=== PATIENT | male | born 2000 | race Caucasian/White ===

== ENCOUNTER 2023-08-27 20:11 | Inpatient (IN) | payer OTHER ==
[~2023-08-27 20:11] MED LIST: Iopamidol-370 76% 500 ML MDV (1 ML CHARGE) ONE
[2023-08-27] MEDS ORDERED: Boostrix 0.5 ML (Tdap) VIAL (>/=7 yrs of age) ONE (20:15)
[2023-08-27] MEDS ORDERED: Tranexamic Acid 1,000 MG/10 ML VIAL ONE (20:15)
[2023-08-27] MEDS ORDERED: Sodium Chloride 0.9% 100 ML ONE (20:16)
[2023-08-27] MEDS ORDERED: CEFAZOLIN 2 GM VIAL ONE (20:16)
[2023-08-27] MEDS ORDERED: fentaNYL 50 mcg/mL 1 mL Vial ONE ×2 (20:19→21:05)
[2023-08-27 20:37] LABS: #Basophils 0.1 thou/uL (0.0-0.2); #Eosinphils 0.1 thou/uL (0.0-0.7); #Monocytes 0.9 thou/uL (0.11-0.59); %Basophils 0.5 % (0.0-1.0); %Eosinophils 0.7 % (0.0-10.0); %Lymphocytes 22.3 % (21.0-51.0); %Monocytes 7.1 % (0.0-10.0); %Neutrophils 68.9 % (42.0-75.0); Hematocrit 43.3 % (42.0-52.0); Hemoglobin 14.8 g/dL (14.0-18.0); Mean Corpuscular HGB CONC 34.2 g/dL (32.0-36.0); Mean Corpuscular Hemoglobin 29.9 pg (27.0-31.0); Mean Corpuscular Volume 87.5 fl (78.0-98.0); Mean Platelet Volume 10.3 fL (7.4-10.4); Platelet Count 257 10x3/uL (130-400); Red Blood Cell (RBC) Count 4.95 mill/uL (4.70-6.10)
[2023-08-27 21:01] LABS: ALT (SGPT) 26 U/L (8-55); AST (SGOT) 39 U/L (5-34); Alkaline Phosphatase 43 U/L (40-110); Anion Gap 15 mmol/L (10-20); BUN (Urea Nitrogen) 21 mg/dL (8.9-20.6); Calc. Creatinine Clearance 0 mL/min (70-130); Carbon Dioxide 20 mmol/L (22-29); Chloride 108 mmol/L (98-107); Estimated GFR 98; Globulin 2.3 g/dL (2.4-3.5); Glucose 108 mg/dL (70-105); Potassium 3.6 mmol/L (3.5-5.1); Protein, Total 6.3 g/dL (6.0-8.3); Sodium 139 mmol/L (136-145)
[2023-08-27] MEDS ORDERED: Ipratropium/Albuterol 3 ML NEB NEB PRN (21:02)
[2023-08-27] MEDS ORDERED: Morphine 4 MG/ML VIAL SLOW IVP PRN (21:02)
[2023-08-27] MEDS ORDERED: Ondansetron PF 4 MG/2 ML Vial IVP PRN (21:02)
[2023-08-27] MEDS ORDERED: Morphine 2 MG/ML VIAL SLOW IVP PRN (21:02)
[2023-08-27] MEDS ORDERED: PROPOFOL 20 ML ONE (21:29)
[2023-08-27] MEDS ORDERED: Midazolam HCl 2 mg/2 ml Vial ONE (21:30)
[2023-08-27] MEDS ORDERED: Fentanyl 250 MCG/5 ML VIAL ONE (21:30)
[2023-08-27] MEDS ORDERED: Lidocaine 1% PF 5 ML VIAL ONE (21:31)
[2023-08-27] MEDS ORDERED: Ondansetron PF 4 MG/2 ML Vial ONE (21:31)
[2023-08-27] MEDS ORDERED: Rocuronium Bromide 10 MG/ML (10ML VIAL) ONE (21:31)
[2023-08-27] MEDS ORDERED: SUCCINYLCHOLINE/SOD CL,ISO/PF 200 MG/10 ML SYRINGE FS ONE (21:32)
[2023-08-27 21:36] LABS: INR-International Normal Ratio 1.1; PTT 29.4 sec (22.9-36.1); Prothrombin Time 14.8 sec (12.0-14.7)
[2023-08-27] MEDS ORDERED: MINERAL OIL/WHITE PETROLATUM 3.5 GM TUBE ONE (22:20)
[2023-08-27] MEDS ORDERED: SUGAMMADEX SODIUM 200 MG/2 ML VIAL ONE (22:31)
[2023-08-27] MEDS ORDERED: Dexamethasone 4 mg/ml Vial ONE (22:31)
[2023-08-27] MEDS ORDERED: PHENYLEPHRINE-NS 100 MCG/ML 10 ML SYRINGE ONE (23:14)
[2023-08-27] MEDS ORDERED: Bacitracin Zinc Ointment 30 gm TUBE ONE (23:47)
[2023-08-28] MEDS ORDERED: Naloxone HCl 0.4 mg/ml Vial IV PRN (00:04)
[2023-08-28] MEDS ORDERED: Promethazine HCl 25 MG/ML VIAL IM PRN ×2 (00:04→00:07)
[2023-08-28] MEDS ORDERED: diphenhydrAMINE 50 MG/ML VIAL IM PRN (00:04)
[2023-08-28] MEDS ORDERED: diphenhydrAMINE 25 MG CAP PO PRN (00:04)
[2023-08-28] MEDS ORDERED: FENTANYL 500 MCG/10 ML VIAL 2,000 MCG in Sodium Chloride 0.9% 60 ML IV PRN ×2 (00:04→08:12)
[2023-08-28] MEDS ORDERED: Ondansetron PF 4 MG/2 ML Vial IVP PRN (00:04)
[2023-08-28] MEDS ORDERED: Ondansetron HCl/PF 4 MG/2 ML Vial IVP PRN (00:07)
[2023-08-28] MEDS ORDERED: Meperidine HCl/PF 25 MG/ML VIAL SLOW IVP PRN (00:07)
[2023-08-28] MEDS ORDERED: Ketorolac Tromethamine 30 MG/ML VIAL IVP PRN (00:07)
[2023-08-28] MEDS ORDERED: fentaNYL 50 mcg/mL 1 mL Vial ONE (00:10)
[2023-08-28] MEDS ORDERED: Communication Order-Pharmacy FS SCH (00:15)
[2023-08-28] MEDS: Acetaminophen 500 MG TAB PO SCH (01:47)
[2023-08-28] MEDS ORDERED: Fentanyl CADD 100 ML IVPB SCH (08:15)
[2023-08-28 08:17] LABS: Anion Gap 12 mmol/L (10-20); BUN (Urea Nitrogen) 16 mg/dL (8.9-20.6); Calc. Creatinine Clearance 179 mL/min (70-130); Calcium 7.2 mg/dL (7.8-10.44); Carbon Dioxide 20 mmol/L (22-29); Chloride 109 mmol/L (98-107); Estimated GFR 125; Glucose 162 mg/dL (70-105); Potassium 4.6 mmol/L (3.5-5.1); Sodium 136 mmol/L (136-145)
[2023-08-28] MEDS: Lactated Ringer's 1,000 ML IV SCH (08:58)
[2023-08-28] MEDS: Bacitracin 1 PK TOP SCH (09:07)
[2023-08-28 10:08] LABS: Hemoglobin 13.5 g/dL (14.0-18.0); Manual Diff?? YES; Mean Corpuscular HGB CONC 33.8 g/dL (32.0-36.0); Mean Corpuscular Hemoglobin 29.6 pg (27.0-31.0); Mean Corpuscular Volume 87.7 fl (78.0-98.0); Mean Platelet Volume 10.2 fL (7.4-10.4); Red Blood Cell (RBC) Count 4.56 mill/uL (4.70-6.10); White Blood Cell (WBC) Count 6.2 10x3/uL (4.8-10.8)
[2023-08-28 10:09] LABS: Delete Auto Diff?? YES; Platelet Count 154 10x3/uL (130-400)
[2023-08-28 10:19] LABS: Hematocrit 38.1 % (42.0-52.0); Hemoglobin 13.2 g/dL (14.0-18.0); Mean Corpuscular Volume 86.6 fl (78.0-98.0); White Blood Cell (WBC) Count 6.9 10x3/uL (4.8-10.8)
[2023-08-28 10:20] LABS: Manual Diff?? YES; Mean Corpuscular HGB CONC 34.6 g/dL (32.0-36.0); Mean Platelet Volume 10.7 fL (7.4-10.4); Platelet Count 162 10x3/uL (130-400)
[2023-08-28 10:34] LABS: Delete Auto Diff?? YES
[2023-08-28 11:14] LABS: Band 25 % (5-11); CellaVision Operator ID LAB.NR; Lymphocytes 11 % (21-51); Monocytes 9 % (0-10); Neutrophil 55 % (42-75); Platelet Adequacy Comment Platelets Normal; Polychromasia SLIGHT = 2-3 cells HPF (0-2); Smudge Cells 10.9 %; Total Cell Count 101
[2023-08-28 13:29] LABS: Band 50 % (5-11); Burr Cells SLIGHT = 2-5 cells HPF (0-1); CellaVision Operator ID LAB.MJL; Large Platelets 1.9 % (0-5); Lymphocytes 9 % (21-51); Metamyelocyte 6 % (0-0); Monocytes 6 % (0-10); Neutrophil 30 % (42-75); Platelet Adequacy Comment Platelets Normal; Poikilocytosis SLIGHT = 6-15 cells HPF (0-5); Polychromasia SLIGHT = 2-3 cells HPF (0-2); Total Cell Count 103
[2023-08-28] MEDS: Fentanyl CADD 100 ML IVPB SCH (14:00)
[2023-08-29] MEDS: Phenol 177 ML BOT PO PRN (03:23)
[2023-08-29 06:42] LABS: Hematocrit 32.5 % (42.0-52.0); Hemoglobin 11.2 g/dL (14.0-18.0); Manual Diff?? YES; Mean Corpuscular HGB CONC 34.5 g/dL (32.0-36.0); Mean Corpuscular Hemoglobin 29.6 pg (27.0-31.0); Mean Platelet Volume 10.3 fL (7.4-10.4); Platelet Count 129 10x3/uL (130-400); Red Blood Cell (RBC) Count 3.78 mill/uL (4.70-6.10); White Blood Cell (WBC) Count 6.1 10x3/uL (4.8-10.8)
[2023-08-29 06:49] LABS: Delete Auto Diff?? YES
[2023-08-29 07:01] LABS: Anion Gap 7 mmol/L (10-20); BUN (Urea Nitrogen) 11 mg/dL (8.9-20.6); Calc. Creatinine Clearance 202 mL/min (70-130); Calcium 7.8 mg/dL (7.8-10.44); Carbon Dioxide 24 mmol/L (22-29); Chloride 105 mmol/L (98-107); Estimated GFR 130; Glucose 102 mg/dL (70-105); Magnesium 1.6 mg/dL (1.6-2.6); Potassium 4.2 mmol/L (3.5-5.1); Sodium 132 mmol/L (136-145)
[2023-08-29 07:07] LABS: Critical Call Chemistry NUR.MH13@0707; Phosphorus 1.3 mg/dL (2.3-4.7)
[2023-08-29 07:24] LABS: Band 12 % (5-11); Burr Cells SLIGHT = 2-5 cells HPF (0-1); CellaVision Operator ID LAB.NR; Large Platelets 2.9 % (0-5); Lymphocytes 11 % (21-51); Microcytosis SLIGHT = 6-15 cells HPF (0-5); Monocytes 5 % (0-10); Neutrophil 73 % (42-75); Platelet Adequacy Comment Platelets Decreased; Polychromasia SLIGHT = 2-3 cells HPF (0-2); Smudge Cells 4.9 %; Total Cell Count 102
[2023-08-29] MEDS: Potassium Phosphate 30 MMOL in Sodium Chloride 0.9% 250 ML 250 ML IVPB SCH (11:45)
[2023-08-29] MEDS: Magnesium Sulfate In Water 4 GM in Premix 1 BAG IVPB SCH (11:45)
[2023-08-29] MEDS: Magnesium 2 GM/50 ML(in water) 4 GM in Premix 1 BAG IVPB SCH (12:02)
[2023-08-29] MEDS: Lactated Ringer's 1,000 ML IV SCH (14:05)
[2023-08-30 06:46] LABS: Hematocrit 31.1 % (42.0-52.0); Hemoglobin 10.6 g/dL (14.0-18.0); Manual Diff?? YES; Mean Corpuscular HGB CONC 34.1 g/dL (32.0-36.0); Mean Corpuscular Hemoglobin 29.9 pg (27.0-31.0); Mean Corpuscular Volume 87.9 fl (78.0-98.0); Mean Platelet Volume 10.9 fL (7.4-10.4); Platelet Count 162 10x3/uL (130-400); RBC Distribution Width 12.8 % (11.5-14.5); Red Blood Cell (RBC) Count 3.54 mill/uL (4.70-6.10); White Blood Cell (WBC) Count 5.8 10x3/uL (4.8-10.8)
[2023-08-30 06:53] LABS: Delete Auto Diff?? YES
[2023-08-30 07:23] LABS: Anion Gap 10 mmol/L (10-20); BUN (Urea Nitrogen) 10 mg/dL (8.9-20.6); Calc. Creatinine Clearance 212 mL/min (70-130); Calcium 8.1 mg/dL (7.8-10.44); Carbon Dioxide 25 mmol/L (22-29); Chloride 101 mmol/L (98-107); Estimated GFR 131; Glucose 91 mg/dL (70-105); Magnesium 1.9 mg/dL (1.6-2.6); Phosphorus 2.5 mg/dL (2.3-4.7); Potassium 4.1 mmol/L (3.5-5.1); Sodium 132 mmol/L (136-145)
[2023-08-30 07:25] LABS: Band 26 % (5-11); CellaVision Operator ID LAB.GE; Lymphocytes 7 % (21-51); Monocytes 8 % (0-10); Neutrophil 56 % (42-75); Platelet Adequacy Comment Platelets Normal; Polychromasia SLIGHT = 2-3 cells HPF (0-2); Reactive Lymphocytes 3 % (0-10); Total Cell Count 100
[2023-08-30] MEDS: Famotidine/PF 20 mg/2ml Vial SLOW IVP SCH (09:14)
[2023-08-30] MEDS: Piperacillin/Tazobactam 3.375 GM in Sodium Chloride 0.9% 100 ML IVPB SCH ×2 (09:15→12:01)
[2023-08-30] MEDS: Enoxaparin 40 MG (0.4 mL) SYRINGE SC SCH (20:16)
[2023-08-31] MEDS: Benzocaine/Menthol 1 LOZ LOZ PO PRN (05:14)
[2023-08-31] MEDS ORDERED: Docusate 100 MG CAP PO PRN (17:12)
[2023-09-01] MEDS: diphenhydrAMINE 50 MG/ML VIAL IVP PRN (01:16)
[2023-09-01 05:29] LABS: Hematocrit 29.2 % (42.0-52.0); Manual Diff?? YES; Mean Corpuscular HGB CONC 34.2 g/dL (32.0-36.0); Mean Corpuscular Volume 87.7 fl (78.0-98.0); Mean Platelet Volume 9.9 fL (7.4-10.4); Platelet Count 219 10x3/uL (130-400); RBC Distribution Width 12.7 % (11.5-14.5); Red Blood Cell (RBC) Count 3.33 mill/uL (4.70-6.10); White Blood Cell (WBC) Count 4.9 10x3/uL (4.8-10.8)
[2023-09-01 05:30] LABS: Delete Auto Diff?? YES
[2023-09-01 06:09] LABS: Band 43 % (5-11); CellaVision Operator ID LAB.CLH1; Hypochromia SLIGHT = 6-15 cells HPF (0-5); Large Platelets 13.7 % (0-5); Lymphocytes 13 % (21-51); Monocytes 13 % (0-10); Neutrophil 27 % (42-75); Platelet Adequacy Comment Platelets Normal; Polychromasia SLIGHT = 2-3 cells HPF (0-2); Reactive Lymphocytes 4 % (0-10); Total Cell Count 102
[2023-09-01 07:18] LABS: Anion Gap 11 mmol/L (10-20); BUN (Urea Nitrogen) 14 mg/dL (8.9-20.6); Calc. Creatinine Clearance 228 mL/min (70-130); Calcium 7.9 mg/dL (7.8-10.44); Carbon Dioxide 26 mmol/L (22-29); Chloride 100 mmol/L (98-107); Estimated GFR 133; Glucose 102 mg/dL (70-105); Magnesium 1.8 mg/dL (1.6-2.6); Potassium 3.7 mmol/L (3.5-5.1); Sodium 133 mmol/L (136-145)
[2023-09-01] MEDS: Furosemide 20 MG (2 mL) VIAL SLOW IVP SCH (09:35)
[2023-09-01 12:25] VITALS: BMI 30.5
[2023-09-01] MEDS: Lactated Ringer's 1,000 ML IV SCH (15:26)
[2023-09-02 05:58] LABS: Hematocrit 28.5 % (42.0-52.0); Hemoglobin 9.8 g/dL (14.0-18.0); Manual Diff?? YES; Mean Corpuscular HGB CONC 34.4 g/dL (32.0-36.0); Mean Corpuscular Hemoglobin 30.1 pg (27.0-31.0); Mean Corpuscular Volume 87.4 fl (78.0-98.0); Mean Platelet Volume 9.6 fL (7.4-10.4); Platelet Count 242 10x3/uL (130-400); RBC Distribution Width 12.6 % (11.5-14.5); Red Blood Cell (RBC) Count 3.26 mill/uL (4.70-6.10); White Blood Cell (WBC) Count 5.1 10x3/uL (4.8-10.8)
[2023-09-02 06:05] LABS: Delete Auto Diff?? YES
[2023-09-02 06:22] LABS: Anion Gap 12 mmol/L (10-20); BUN (Urea Nitrogen) 13 mg/dL (8.9-20.6); Calc. Creatinine Clearance 224 mL/min (70-130); Calcium 7.8 mg/dL (7.8-10.44); Carbon Dioxide 25 mmol/L (22-29); Chloride 99 mmol/L (98-107); Estimated GFR 133; Glucose 89 mg/dL (70-105); Potassium 3.5 mmol/L (3.5-5.1); Sodium 132 mmol/L (136-145)
[2023-09-02 06:30] LABS: Band 28 % (5-11); CellaVision Operator ID LAB.CLH1; Eosinophils 5 % (0-10); Hypochromia SLIGHT = 6-15 cells HPF (0-5); Lymphocytes 20 % (21-51); Monocytes 13 % (0-10); Myelocyte 1 % (0-0); Neutrophil 33 % (42-75); Nucleated RBC (Manual Ct) 1 % (0); Platelet Adequacy Comment Platelets Normal; Polychromasia SLIGHT = 2-3 cells HPF (0-2); Promyelocytes 1 % (0-0); Total Cell Count 101
[2023-09-02] MEDS ORDERED: GASTROGRAFIN 30 ML BOT ONE (11:56)
[2023-09-02] MEDS ORDERED: Iopamidol-370 76% 500 ML MDV (1 ML CHARGE) ONE (11:56)
[2023-09-02] MEDS: Sodium Chloride 0.9% 1,000 ML IV SCH (12:43)
[2023-09-02] MEDS ORDERED: Rocuronium Bromide 10 MG/ML (10ML VIAL) ONE (15:32)
[2023-09-02] MEDS ORDERED: Ondansetron PF 4 MG/2 ML Vial ONE ×2 (15:32→15:42)
[2023-09-02] MEDS ORDERED: PROPOFOL 40 ML ONE (15:32)
[2023-09-02] MEDS ORDERED: SUGAMMADEX SODIUM 200 MG/2 ML VIAL ONE ×2 (15:32→17:40)
[2023-09-02] MEDS ORDERED: Lidocaine 1% PF 5 ML VIAL ONE (15:32)
[2023-09-02] MEDS ORDERED: Dexamethasone 4 mg/ml Vial ONE (15:32)
[2023-09-02] MEDS ORDERED: Fentanyl 250 MCG/5 ML VIAL ONE (15:33)
[2023-09-02] MEDS ORDERED: fentaNYL 50 mcg/mL 1 mL Vial ONE ×3 (15:43→18:38)
[2023-09-02] MEDS ORDERED: Famotidine/PF 20 mg/2ml Vial ONE (15:43)
[2023-09-02] MEDS ORDERED: Ondansetron HCl/PF 4 MG/2 ML Vial IVP PRN (15:58)
[2023-09-02] MEDS ORDERED: Promethazine HCl 25 MG/ML VIAL IM PRN ×4 (15:58→22:23)
[2023-09-02] MEDS ORDERED: Meperidine HCl/PF 25 MG/ML VIAL SLOW IVP PRN (15:58)
[2023-09-02] MEDS ORDERED: Midazolam HCl 2 mg/2 ml Vial ONE (16:16)
[2023-09-02] MEDS ORDERED: Ketamine In 0.9 % NaCl 50 MG/5 ML SYRINGE ONE (16:50)
[2023-09-02] MEDS ORDERED: diphenhydrAMINE 25 MG CAP PO PRN ×3 (17:48→22:23)
[2023-09-02] MEDS ORDERED: diphenhydrAMINE 50 MG/ML VIAL IM PRN ×3 (17:48→22:23)
[2023-09-02] MEDS ORDERED: Ondansetron PF 4 MG/2 ML Vial IVP PRN ×3 (17:48→22:23)
[2023-09-02] MEDS ORDERED: Naloxone HCl 0.4 mg/ml Vial IV PRN ×3 (17:48→22:23)
[2023-09-02] MEDS ORDERED: diphenhydrAMINE 50 MG/ML VIAL IVP PRN ×3 (17:48→22:23)
[2023-09-02] MEDS ORDERED: Communication Order-Pharmacy FS SCH ×3 (18:00→22:30)
[2023-09-02] MEDS ORDERED: HYDROmorphone 0.5 MG/0.5 ML SYRINGE ONE ×2 (18:49→18:58)
[2023-09-02] MEDS: FENTANYL 500 MCG/10 ML VIAL 2,000 MCG in Sodium Chloride 0.9% 60 ML IV PRN (19:58)
[2023-09-02] MEDS ORDERED: HYDROmorphone/PF 10 MG in Sodium Chloride 0.9% 99 ML IV PRN ×2 (22:21→22:23)
[2023-09-02] MEDS: HYDROmorphone/PF 10 MG in Sodium Chloride 0.9% 99 ML IV PRN (23:45)
[2023-09-03] MEDS: Ketorolac Tromethamine 30 MG (1 mL) VIAL IVP SCH ×2 (03:25→12:19)
[2023-09-04 10:22] LABS: Hemoglobin 9.8 g/dL (14.0-18.0); Manual Diff?? YES; Mean Corpuscular HGB CONC 33.8 g/dL (32.0-36.0); Mean Corpuscular Hemoglobin 29.8 pg (27.0-31.0); Mean Corpuscular Volume 88.1 fl (78.0-98.0); Mean Platelet Volume 9.1 fL (7.4-10.4); Platelet Count 325 10x3/uL (130-400); Red Blood Cell (RBC) Count 3.29 mill/uL (4.70-6.10); White Blood Cell (WBC) Count 9.9 10x3/uL (4.8-10.8)
[2023-09-04 10:28] LABS: Delete Auto Diff?? YES
[2023-09-04 10:48] LABS: ALT (SGPT) 21 U/L (8-55); AST (SGOT) 25 U/L (5-34); Albumin 2.5 g/dL (3.5-5.0); Alkaline Phosphatase 34 U/L (40-110); Anion Gap 16 mmol/L (10-20); BUN (Urea Nitrogen) 14 mg/dL (8.9-20.6); Bilirubin, Total 2.1 mg/dL (0.2-1.2); Calc. Creatinine Clearance 207 mL/min (70-130); Calcium 7.6 mg/dL (7.8-10.44); Carbon Dioxide 22 mmol/L (22-29); Chloride 104 mmol/L (98-107); Estimated GFR 130; Globulin 2.2 g/dL (2.4-3.5); Glucose 86 mg/dL (70-105); Potassium 3.8 mmol/L (3.5-5.1); Protein, Total 4.7 g/dL (6.0-8.3); Sodium 138 mmol/L (136-145)
[2023-09-04 11:19] LABS: Band 13 % (5-11); Burr Cells SLIGHT = 2-5 cells HPF (0-1); CellaVision Operator ID LAB.CMB; Eosinophils 1 % (0-10); Large Platelets 4.9 % (0-5); Lymphocytes 7 % (21-51); Monocytes 5 % (0-10); Neutrophil 73 % (42-75); Ovalocytes SLIGHT = 2-5 cells HPF (0-1); Platelet Adequacy Comment Platelets Normal; Polychromasia SLIGHT = 2-3 cells HPF (0-2); Total Cell Count 102
[2023-09-07 03:52] LABS: #Eosinphils 0.1 thou/uL (0.0-0.7); #Neutrophils 6.5 thou/uL (1.40-6.50); %Basophils 0.2 % (0.0-1.0); %Lymphocytes 11.4 % (21.0-51.0); %Monocytes 11.5 % (0.0-10.0); %Neutrophils 74.4 % (42.0-75.0); Mean Corpuscular HGB CONC 33.3 g/dL (32.0-36.0); Mean Corpuscular Hemoglobin 29.8 pg (27.0-31.0); Mean Corpuscular Volume 89.4 fl (78.0-98.0); Mean Platelet Volume 9.4 fL (7.4-10.4); Platelet Count 418 10x3/uL (130-400); RBC Distribution Width 13.1 % (11.5-14.5); Red Blood Cell (RBC) Count 3.02 mill/uL (4.70-6.10); White Blood Cell (WBC) Count 8.7 10x3/uL (4.8-10.8)
[2023-09-07 04:16] LABS: ALT (SGPT) 22 U/L (8-55); AST (SGOT) 24 U/L (5-34); Albumin 2.8 g/dL (3.5-5.0); Alkaline Phosphatase 52 U/L (40-110); Anion Gap 12 mmol/L (10-20); BUN (Urea Nitrogen) 13 mg/dL (8.9-20.6); Bilirubin, Total 2.4 mg/dL (0.2-1.2); Calc. Creatinine Clearance 218 mL/min (70-130); Calcium 7.8 mg/dL (7.8-10.44); Carbon Dioxide 24 mmol/L (22-29); Chloride 103 mmol/L (98-107); Estimated GFR 132; Globulin 2.4 g/dL (2.4-3.5); Glucose 96 mg/dL (70-105); Potassium 3.7 mmol/L (3.5-5.1); Protein, Total 5.2 g/dL (6.0-8.3); Sodium 135 mmol/L (136-145)
[2023-09-07] MEDS: Ketorolac Tromethamine 30 MG (1 mL) VIAL IVP SCH (12:15)
[2023-09-07] MEDS ORDERED: Ondansetron ODT 4 MG TAB PO PRN (15:49)
[2023-09-07] MEDS: Melatonin 3 MG TAB PO PRN (23:35)
[2023-09-08 04:52] LABS: #Eosinphils 0.1 thou/uL (0.0-0.7); #Neutrophils 4.6 thou/uL (1.40-6.50); %Basophils 0.6 % (0.0-1.0); %Eosinophils 1.7 % (0.0-10.0); %Lymphocytes 17.7 % (21.0-51.0); %Neutrophils 64.2 % (42.0-75.0); Hematocrit 29.1 % (42.0-52.0); Hemoglobin 9.7 g/dL (14.0-18.0); Mean Corpuscular HGB CONC 33.3 g/dL (32.0-36.0); Mean Corpuscular Hemoglobin 29.4 pg (27.0-31.0); Mean Corpuscular Volume 88.2 fl (78.0-98.0); Mean Platelet Volume 9.6 fL (7.4-10.4); Platelet Count 468 10x3/uL (130-400); White Blood Cell (WBC) Count 7.2 10x3/uL (4.8-10.8)
[2023-09-08 05:32] LABS: Anion Gap 14 mmol/L (10-20); BUN (Urea Nitrogen) 8 mg/dL (8.9-20.6); Calc. Creatinine Clearance 228 mL/min (70-130); Calcium 8.1 mg/dL (7.8-10.44); Carbon Dioxide 24 mmol/L (22-29); Chloride 105 mmol/L (98-107); Estimated GFR 133; Glucose 102 mg/dL (70-105); Potassium 3.6 mmol/L (3.5-5.1); Sodium 139 mmol/L (136-145)
[2023-09-08] MEDS ORDERED: Lactated Ringer's 1,000 ML IV SCH (10:30)
[2023-09-08] MEDS ORDERED: SUGAMMADEX SODIUM 200 MG/2 ML VIAL ONE (11:33)
[2023-09-08] MEDS ORDERED: Midazolam HCl 2 mg/2 ml Vial ONE (11:33)
[2023-09-08] MEDS ORDERED: Fentanyl 250 MCG/5 ML VIAL ONE (11:33)
[2023-09-08] MEDS ORDERED: PROPOFOL 20 ML ONE (11:33)
[2023-09-08] MEDS ORDERED: Lidocaine 1% PF 5 ML VIAL ONE (11:35)
[2023-09-08] MEDS ORDERED: Dexamethasone 4 mg/ml Vial ONE (11:35)
[2023-09-08] MEDS ORDERED: Ondansetron PF 4 MG/2 ML Vial ONE (11:35)
[2023-09-08] MEDS ORDERED: Rocuronium Bromide 10 MG/ML (10ML VIAL) ONE (11:35)
[2023-09-08] MEDS: Lactated Ringer's 1,000 ML IV SCH (12:25)
[2023-09-08] MEDS ORDERED: CEFAZOLIN 2 GM VIAL ONE (13:09)
[2023-09-08] MEDS ORDERED: Sodium Chloride 0.9% 100 ML ONE (13:09)
[2023-09-08] MEDS ORDERED: HYDROmorphone 2 MG/ML VIAL SLOW IVP PRN (13:41)
[2023-09-08] MEDS ORDERED: Promethazine HCl 25 MG/ML VIAL IM PRN (13:41)
[2023-09-08] MEDS ORDERED: Ondansetron HCl/PF 4 MG/2 ML Vial IVP PRN (13:41)
[2023-09-08] MEDS ORDERED: HYDROmorphone 0.5 MG/0.5 ML SYRINGE ONE ×2 (14:30→14:51)
[2023-09-08] MEDS ORDERED: fentaNYL 50 mcg/mL 1 mL Vial ONE ×4 (15:17→16:13)
[2023-09-08] MEDS: Morphine 4 MG/ML VIAL SLOW IVP PRN (17:29)
[2023-09-09 06:44] LABS: #Eosinphils 0.1 thou/uL (0.0-0.7); #Monocytes 1.2 thou/uL (0.11-0.59); #Neutrophils 5.1 thou/uL (1.40-6.50); %Basophils 0.3 % (0.0-1.0); %Eosinophils 0.6 % (0.0-10.0); %Lymphocytes 17.9 % (21.0-51.0); %Monocytes 15.5 % (0.0-10.0); %Neutrophils 64.4 % (42.0-75.0); Hematocrit 28.4 % (42.0-52.0); Hemoglobin 9.3 g/dL (14.0-18.0); Mean Corpuscular HGB CONC 32.7 g/dL (32.0-36.0); Mean Corpuscular Hemoglobin 29.4 pg (27.0-31.0); Mean Corpuscular Volume 89.9 fl (78.0-98.0); Mean Platelet Volume 9.5 fL (7.4-10.4); Platelet Count 538 10x3/uL (130-400); RBC Distribution Width 13.2 % (11.5-14.5); Red Blood Cell (RBC) Count 3.16 mill/uL (4.70-6.10); White Blood Cell (WBC) Count 7.9 10x3/uL (4.8-10.8)
[2023-09-09 07:23] LABS: Anion Gap 17 mmol/L (10-20); BUN (Urea Nitrogen) 9 mg/dL (8.9-20.6); Calc. Creatinine Clearance 215 mL/min (70-130); Calcium 8.3 mg/dL (7.8-10.44); Carbon Dioxide 23 mmol/L (22-29); Chloride 102 mmol/L (98-107); Estimated GFR 131; Glucose 89 mg/dL (70-105); Potassium 3.7 mmol/L (3.5-5.1); Sodium 138 mmol/L (136-145)
[2023-09-09] MEDS: Lactulose 20 GM (30 mL) UDCUP PO SCH (10:11)
[2023-09-09] MEDS: Ibuprofen 800 MG TAB PO PRN (21:21)
[2023-09-10] MEDS: traMADol HCl 50 MG TAB PO PRN (13:05)
[2023-09-12] MEDS: Lactated Ringer's 1,000 ML IV SCH (00:26)
[2023-09-12 00:53] LABS: Hemoglobin 8.9 g/dL (14.0-18.0); Manual Diff?? YES; Mean Corpuscular Hemoglobin 29.4 pg (27.0-31.0); Mean Corpuscular Volume 89.1 fl (78.0-98.0); Mean Platelet Volume 9.6 fL (7.4-10.4); Platelet Count 466 10x3/uL (130-400); RBC Distribution Width 12.9 % (11.5-14.5); Red Blood Cell (RBC) Count 3.03 mill/uL (4.70-6.10); White Blood Cell (WBC) Count 9.4 10x3/uL (4.8-10.8)
[2023-09-12 00:55] LABS: Delete Auto Diff?? YES
[2023-09-12 01:06] LABS: Anion Gap 14 mmol/L (10-20); BUN (Urea Nitrogen) 10 mg/dL (8.9-20.6); Calc. Creatinine Clearance 204 mL/min (70-130); Calcium 7.9 mg/dL (7.8-10.44); Carbon Dioxide 24 mmol/L (22-29); Chloride 102 mmol/L (98-107); Estimated GFR 129; Glucose 112 mg/dL (70-105); Potassium 3.9 mmol/L (3.5-5.1); Sodium 136 mmol/L (136-145)
[2023-09-12 01:23] LABS: Band 11 % (5-11); Eosinophils 2 % (0-10); Lymphocytes 19 % (21-51); Monocytes 10 % (0-10); Neutrophil 56 % (42-75); Reactive Lymphocytes 1 % (0-10)
[2023-09-12 01:25] LABS: Ovalocytes SLIGHT = 2-5 cells (100X) (0-1/hpf); Polychromasia SLIGHT = 2-3 cells (100X) (0-2/hpf); Stomatocytes SLIGHT = 2-5 cells (100X) (0-1/hpf)
[2023-09-12 01:26] LABS: Platelet Adequacy Comment Appears Increased
[2023-09-12] MEDS ORDERED: PROPOFOL 20 ML ONE (18:24)
[2023-09-12] MEDS ORDERED: Midazolam HCl 2 mg/2 ml Vial ONE (18:24)
[2023-09-12] MEDS ORDERED: fentaNYL PF 100 MCG/2 ML SYRINGE ONE ×2 (18:24→20:22)
[2023-09-12] MEDS ORDERED: SUCCINYLCHOLINE/SOD CL,ISO/PF 200 MG/10 ML SYRINGE FS ONE (18:25)
[2023-09-12] MEDS ORDERED: Ondansetron PF 4 MG/2 ML Vial ONE (18:25)
[2023-09-12] MEDS ORDERED: Lidocaine 1% PF 5 ML VIAL ONE (18:25)
[2023-09-12] MEDS ORDERED: Rocuronium Bromide 10 MG/ML (10ML VIAL) ONE (18:25)
[2023-09-12] MEDS ORDERED: Dexamethasone 4 mg/ml Vial ONE (18:25)
[2023-09-12] MEDS ORDERED: Piperacillin/Tazobactam 3.375 GM VIAL ONE (18:42)
[2023-09-12] MEDS ORDERED: PHENYLEPHRINE-NS 100 MCG/ML 10 ML SYRINGE ONE (18:57)
[2023-09-12] MEDS ORDERED: Promethazine HCl 25 MG/ML VIAL IM PRN (19:56)
[2023-09-12] MEDS ORDERED: diphenhydrAMINE 25 MG CAP PO PRN (19:56)
[2023-09-12] MEDS ORDERED: diphenhydrAMINE 50 MG/ML VIAL IM PRN (19:56)
[2023-09-12] MEDS ORDERED: Naloxone HCl 0.4 mg/ml Vial IV PRN (19:56)
[2023-09-12] MEDS ORDERED: diphenhydrAMINE 50 MG/ML VIAL IVP PRN (19:56)
[2023-09-12] MEDS ORDERED: SUGAMMADEX SODIUM 200 MG/2 ML VIAL ONE (20:00)
[2023-09-12] MEDS ORDERED: Communication Order-Pharmacy FS SCH (20:00)
[2023-09-12] MEDS ORDERED: Ketorolac Tromethamine 30 MG (1 mL) VIAL ONE (20:21)
[2023-09-12] MEDS ORDERED: fentaNYL 50 mcg/mL 1 mL Vial ONE (20:47)
[2023-09-13] MEDS: Lactated Ringer's 1,000 ML IV SCH (04:30)
[2023-09-13 04:40] LABS: Hemoglobin 8.7 g/dL (14.0-18.0); Manual Diff?? YES; Mean Corpuscular HGB CONC 32.2 g/dL (32.0-36.0); Mean Corpuscular Hemoglobin 28.8 pg (27.0-31.0); Mean Corpuscular Volume 89.4 fl (78.0-98.0); Mean Platelet Volume 9.8 fL (7.4-10.4); Platelet Count 464 10x3/uL (130-400); RBC Distribution Width 13.1 % (11.5-14.5); Red Blood Cell (RBC) Count 3.02 mill/uL (4.70-6.10); White Blood Cell (WBC) Count 9.5 10x3/uL (4.8-10.8)
[2023-09-13 04:48] LABS: Delete Auto Diff?? YES
[2023-09-13 05:01] LABS: ALT (SGPT) 24 U/L (8-55); AST (SGOT) 19 U/L (5-34); Albumin 2.5 g/dL (3.5-5.0); Alkaline Phosphatase 65 U/L (40-110); BUN (Urea Nitrogen) 6 mg/dL (8.9-20.6); Bilirubin, Total 0.6 mg/dL (0.2-1.2); Calc. Creatinine Clearance 257 mL/min (70-130); Calcium 8.2 mg/dL (7.8-10.44); Carbon Dioxide 26 mmol/L (22-29); Estimated GFR 138; Globulin 2.5 g/dL (2.4-3.5); Glucose 141 mg/dL (70-105); Sodium 139 mmol/L (136-145)
[2023-09-13 05:05] LABS: Chloride 105 mmol/L (98-107); Potassium 4.6 mmol/L (3.5-5.1)
[2023-09-13 05:08] LABS: Anion Gap 12 mmol/L (10-20)
[2023-09-13 05:12] LABS: Band 48 % (5-11); CellaVision Operator ID LAB.CLH1; Hypochromia SLIGHT = 6-15 cells HPF (0-5); Lymphocytes 3 % (21-51); Metamyelocyte 1 % (0-0); Monocytes 8 % (0-10); Neutrophil 38 % (42-75); Platelet Adequacy Comment Platelets Increased; Polychromasia SLIGHT = 2-3 cells HPF (0-2); Reactive Lymphocytes 1 % (0-10); Total Cell Count 102
[2023-09-13] MEDS: Piperacillin/Tazobactam 3.375 GM in Sodium Chloride 0.9% 100 ML IVPB SCH ×2 (09:04→13:22)
[2023-09-13] MEDS ORDERED: Sodium Bicarbonate 0.5 MEQ/ML SDV 10 ML ONE (13:57)
[2023-09-13] MEDS ORDERED: Lidocaine 1% PF 5 ML VIAL ONE (13:57)
[2023-09-13] MEDS: HYDROmorphone/PF 10 MG in Sodium Chloride 0.9% 99 ML IV PRN (23:22)
[2023-09-14] MEDS ORDERED: LYTES IN TPN IVPB PRN (09:58)
[2023-09-14] MEDS: Pantoprazole 40 MG VIAL IVP SCH (10:02)
[2023-09-14 12:03] LABS: Magnesium 1.7 mg/dL (1.6-2.6); Phosphorus 4.4 mg/dL (2.3-4.7)
[2023-09-14] MEDS: Multivitamins, Adult 10 ML, TRACE ELEMENT CONCENTRATE 1 ML in D15W-AA 5% with Lytes 2,0... IV SCH (15:29)
[2023-09-15 08:15] LABS: Hematocrit 26.7 % (42.0-52.0); Hemoglobin 8.6 g/dL (14.0-18.0); Manual Diff?? YES; Mean Corpuscular HGB CONC 32.2 g/dL (32.0-36.0); Mean Corpuscular Hemoglobin 28.9 pg (27.0-31.0); Mean Corpuscular Volume 89.6 fl (78.0-98.0); Mean Platelet Volume 8.9 fL (7.4-10.4); Platelet Count 399 10x3/uL (130-400); RBC Distribution Width 12.8 % (11.5-14.5); Red Blood Cell (RBC) Count 2.98 mill/uL (4.70-6.10); White Blood Cell (WBC) Count 5.6 10x3/uL (4.8-10.8)
[2023-09-15 08:19] LABS: Delete Auto Diff?? YES
[2023-09-15 08:34] LABS: ALT (SGPT) 19 U/L (8-55); AST (SGOT) 15 U/L (5-34); Albumin 2.8 g/dL (3.5-5.0); Alkaline Phosphatase 70 U/L (40-110); Anion Gap 9 mmol/L (10-20); BUN (Urea Nitrogen) 7 mg/dL (8.9-20.6); Bilirubin, Total 0.5 mg/dL (0.2-1.2); Calc. Creatinine Clearance 224 mL/min (70-130); Calcium 8.3 mg/dL (7.8-10.44); Carbon Dioxide 31 mmol/L (22-29); Chloride 104 mmol/L (98-107); Estimated GFR 133; Globulin 2.8 g/dL (2.4-3.5); Glucose 141 mg/dL (70-105); Magnesium 2.3 mg/dL (1.6-2.6); Phosphorus 4.3 mg/dL (2.3-4.7); Potassium 3.9 mmol/L (3.5-5.1); Protein, Total 5.6 g/dL (6.0-8.3); Sodium 140 mmol/L (136-145)
[2023-09-15 08:41] LABS: Band 16 % (5-11); CellaVision Operator ID LAB.GE; Eosinophils 4 % (0-10); Lymphocytes 31 % (21-51); Metamyelocyte 1 % (0-0); Monocytes 14 % (0-10); Myelocyte 3 % (0-0); Neutrophil 32 % (42-75); Platelet Adequacy Comment Platelets Normal; Polychromasia SLIGHT = 2-3 cells HPF (0-2); Schistocytes SLIGHT = 2-5 cells HPF (0-1); Total Cell Count 101
[2023-09-15] MEDS: Lactated Ringer's 1,000 ML IV SCH (11:15)
[2023-09-15] MEDS: Multivitamins, Adult 10 ML, TRACE ELEMENT CONCENTRATE 1 ML, Fat Emulsion 500 ML in D15W... IV SCH (13:50)
[2023-09-16 05:19] LABS: ALT (SGPT) 18 U/L (8-55); AST (SGOT) 13 U/L (5-34); Alkaline Phosphatase 60 U/L (40-110); Anion Gap 13 mmol/L (10-20); BUN (Urea Nitrogen) 8 mg/dL (8.9-20.6); Bilirubin, Total 0.4 mg/dL (0.2-1.2); Calc. Creatinine Clearance 207 mL/min (70-130); Calcium 8.7 mg/dL (7.8-10.44); Carbon Dioxide 28 mmol/L (22-29); Chloride 104 mmol/L (98-107); Estimated GFR 130; Globulin 3.1 g/dL (2.4-3.5); Glucose 113 mg/dL (70-105); Magnesium 2.2 mg/dL (1.6-2.6); Potassium 4.1 mmol/L (3.5-5.1); Protein, Total 6.1 g/dL (6.0-8.3); Sodium 141 mmol/L (136-145)
[2023-09-16] MEDS ORDERED: Acetaminophen 325 MG TAB PO PRN (09:51)
[2023-09-16] MEDS: Lactated Ringer's 1,000 ML IV SCH ×2 (12:01→12:15)
[2023-09-16] MEDS: Ondansetron PF 4 MG/2 ML Vial IVP PRN (16:17)
[2023-09-16] MEDS: HYDROcodone/Acetaminophen 5/325 mg Tablet PO PRN ×2 (16:17→21:14)
[2023-09-17 05:04] LABS: Hematocrit 28.8 % (42.0-52.0); Hemoglobin 9.2 g/dL (14.0-18.0); Manual Diff?? YES; Mean Corpuscular HGB CONC 31.9 g/dL (32.0-36.0); Mean Corpuscular Volume 90.9 fl (78.0-98.0); Mean Platelet Volume 9.5 fL (7.4-10.4); Platelet Count 413 10x3/uL (130-400); RBC Distribution Width 12.6 % (11.5-14.5); Red Blood Cell (RBC) Count 3.17 mill/uL (4.70-6.10); White Blood Cell (WBC) Count 5.8 10x3/uL (4.8-10.8)
[2023-09-17 05:15] LABS: Delete Auto Diff?? YES
[2023-09-17 05:33] LABS: Anion Gap 12 mmol/L (10-20); BUN (Urea Nitrogen) 8 mg/dL (8.9-20.6); Calc. Creatinine Clearance 209 mL/min (70-130); Calcium 8.9 mg/dL (7.8-10.44); Carbon Dioxide 26 mmol/L (22-29); Chloride 102 mmol/L (98-107); Critical Call Chemistry NUR.SAP1@0532; Estimated GFR 130; Glucose 422 mg/dL (70-105); Magnesium 2.3 mg/dL (1.6-2.6); Phosphorus 5.2 mg/dL (2.3-4.7); Potassium 5.1 mmol/L (3.5-5.1); Sodium 135 mmol/L (136-145)
[2023-09-17 05:56] LABS: Band 9 % (5-11); CellaVision Operator ID lab.abc; Eosinophils 3 % (0-10); Large Platelets 8.9 % (0-5); Lymphocytes 23 % (21-51); Metamyelocyte 2 % (0-0); Monocytes 18 % (0-10); Neutrophil 45 % (42-75); Platelet Adequacy Comment Platelets Increased; Polychromasia SLIGHT = 2-3 cells HPF (0-2); Smudge Cells 13.9 %; Total Cell Count 101
[2023-09-17 10:52] LABS: ALT (SGPT) 25 U/L (8-55); AST (SGOT) 23 U/L (5-34); Albumin 3.4 g/dL (3.5-5.0); Alkaline Phosphatase 68 U/L (40-110); Anion Gap 13 mmol/L (10-20); BUN (Urea Nitrogen) 9 mg/dL (8.9-20.6); Bilirubin, Total 0.8 mg/dL (0.2-1.2); Calc. Creatinine Clearance 218 mL/min (70-130); Carbon Dioxide 26 mmol/L (22-29); Chloride 103 mmol/L (98-107); Estimated GFR 132; Globulin 3.2 g/dL (2.4-3.5); Glucose 101 mg/dL (70-105); Magnesium 2.1 mg/dL (1.6-2.6); Phosphorus 4.2 mg/dL (2.3-4.7); Potassium 4.5 mmol/L (3.5-5.1); Protein, Total 6.6 g/dL (6.0-8.3); Sodium 137 mmol/L (136-145)
[2023-09-17] MEDS: Morphine 2 MG/ML VIAL SLOW IVP PRN (13:30)
[2023-09-18] MEDS ORDERED: Lidocaine 1% w/Epinephrine 1:100K 20 ML VIAL FS SCH (07:45)
[2023-09-18] MEDS ORDERED: Bupivacaine 0.25% HCL 30 ML VIAL FS SCH (07:45)
[2023-09-18 08:48] LABS: ALT (SGPT) 79 U/L (8-55); AST (SGOT) 58 U/L (5-34); Albumin 3.5 g/dL (3.5-5.0); Alkaline Phosphatase 78 U/L (40-110); Anion Gap 12 mmol/L (10-20); BUN (Urea Nitrogen) 10 mg/dL (8.9-20.6); Bilirubin, Total 0.8 mg/dL (0.2-1.2); Calc. Creatinine Clearance 209 mL/min (70-130); Calcium 9.3 mg/dL (7.8-10.44); Carbon Dioxide 28 mmol/L (22-29); Chloride 103 mmol/L (98-107); Estimated GFR 130; Globulin 3.3 g/dL (2.4-3.5); Glucose 107 mg/dL (70-105); Magnesium 2.2 mg/dL (1.6-2.6); Phosphorus 5.2 mg/dL (2.3-4.7); Potassium 4.6 mmol/L (3.5-5.1); Protein, Total 6.8 g/dL (6.0-8.3); Sodium 138 mmol/L (136-145)
[2023-09-18] MEDS: Albumin 25% 25 GM (100 mL) BOT IVPB SCH (12:17)
[2023-09-18] MEDS: Morphine 4 MG/ML VIAL ONE (13:55)
[2023-09-18] MEDS: Morphine 4 MG/ML VIAL SLOW IVP SCH (15:29)
[2023-09-19] MEDS: traMADol HCl 50 MG TAB PO PRN (00:30)
[2023-09-19 05:59] LABS: ALT (SGPT) 61 U/L (8-55); AST (SGOT) 35 U/L (5-34); Albumin 4.3 g/dL (3.5-5.0); Alkaline Phosphatase 63 U/L (40-110); Anion Gap 13 mmol/L (10-20); BUN (Urea Nitrogen) 11 mg/dL (8.9-20.6); Bilirubin, Total 1.3 mg/dL (0.2-1.2); Calc. Creatinine Clearance 224 mL/min (70-130); Calcium 9.7 mg/dL (7.8-10.44); Carbon Dioxide 25 mmol/L (22-29); Chloride 102 mmol/L (98-107); Estimated GFR 133; Globulin 2.8 g/dL (2.4-3.5); Glucose 83 mg/dL (70-105); Magnesium 2.2 mg/dL (1.6-2.6); Phosphorus 5.7 mg/dL (2.3-4.7); Potassium 4.2 mmol/L (3.5-5.1); Protein, Total 7.1 g/dL (6.0-8.3); Sodium 136 mmol/L (136-145)
[2023-09-19] MEDS: SODIUM CHLORIDE IV SCH (15:32)
[2023-09-19] MEDS: [UNRECOGNIZED DRUG - OTHER] IV SCH (15:32)
[2023-09-19] MEDS: POTASSIUM ACETATE IV SCH (15:32)
[2023-09-19] MEDS: SODIUM ACETATE IV SCH (15:32)
[2023-09-19] MEDS: Lactated Ringer's 1,000 ML IV SCH (15:33)
[2023-09-20] MEDS: SODIUM ACETATE IV SCH (13:21)
[2023-09-20] MEDS: [UNRECOGNIZED DRUG - OTHER] IV SCH (13:21)
[2023-09-20] MEDS: POTASSIUM ACETATE IV SCH (13:21)
[2023-09-20] MEDS: SODIUM CHLORIDE IV SCH (13:21)
[2023-09-20] MEDS: Melatonin 3 MG TAB PO PRN (23:34)
[2023-09-21 06:54] LABS: ALT (SGPT) 72 U/L (8-55); AST (SGOT) 35 U/L (5-34); Albumin 4.1 g/dL (3.5-5.0); Alkaline Phosphatase 90 U/L (40-110); Anion Gap 13 mmol/L (10-20); BUN (Urea Nitrogen) 12 mg/dL (8.9-20.6); Bilirubin, Total 0.8 mg/dL (0.2-1.2); Calc. Creatinine Clearance 204 mL/min (70-130); Calcium 9.4 mg/dL (7.8-10.44); Carbon Dioxide 26 mmol/L (22-29); Chloride 104 mmol/L (98-107); Estimated GFR 129; Globulin 2.9 g/dL (2.4-3.5); Glucose 93 mg/dL (70-105); Potassium 4.1 mmol/L (3.5-5.1); Sodium 139 mmol/L (136-145)
[2023-09-21] MEDS ORDERED: traMADol HCl 50 MG TAB PO PRN (08:18)
[2023-09-21] MEDS: Morphine 4 MG/ML VIAL SLOW IVP SCH (08:30)
[2023-09-21] MEDS ORDERED: Acetaminophen 325 MG TAB PO SCH (12:15)
[2023-09-21] MEDS: traMADol HCl 50 MG TAB PO SCH (12:30)
[2023-09-21] MEDS: Acetaminophen 500 MG TAB PO SCH ×2 (12:31→18:00)
[2023-09-21] MEDS: Ibuprofen 600 MG TAB PO PRN (15:22)
[2023-09-21] MEDS: Ibuprofen 600 MG TAB PO SCH (15:30)
[2023-09-22] MEDS: diphenhydrAMINE 25 MG CAP PO PRN (01:40)
[2023-09-22] MEDS ORDERED: Polyethylene Glycol 3350 17 GM Packet PO PRN (10:00)
[2023-09-22] MEDS: Magnesium Citrate 300 ML BOT PO SCH (10:26)
[2023-09-22] MEDS: Morphine 4 MG/ML VIAL ONE (14:48)
[2023-09-22] MEDS ORDERED: Lactulose 20 GM (30 mL) UDCUP PO SCH (15:00)
[2023-09-22] MEDS ORDERED: Senokot S 8.6-50 MG TAB PO SCH ×2 (21:00)
[2023-09-23] MEDS: traMADol HCl 50 MG TAB PO PRN (08:52)
[2023-09-23] MEDS ORDERED: Polyethylene Glycol 3350 17 GM Packet PO SCH (09:00)
[2023-09-23] MEDS: Morphine 4 MG/ML VIAL ONE (09:22)
[2023-09-23] MEDS: Morphine 2 MG/ML VIAL SLOW IVP SCH (09:24)
[2023-09-23] MEDS: Diphenoxylate HCl/Atropine Tablet PO SCH (14:56)
[2023-09-23] MEDS: Metamucil PACK PO SCH (21:45)
[2023-09-24] MEDS ORDERED: Metamucil PACK PO SCH (09:00)
[2023-09-24] MEDS ORDERED: Diphenoxylate HCl/Atropine Tablet PO PRN ×2 (09:00→09:17)
[2023-09-24] MEDS: Morphine 4 MG/ML VIAL SLOW IVP SCH (09:47)
[2023-09-24] MEDS: Morphine 2 MG/ML VIAL SLOW IVP SCH (13:35)
[2023-09-25] MEDS: Morphine 2 MG/ML VIAL SLOW IVP PRN (09:05)
[2023-09-26] MEDS: diphenhydrAMINE 30 GM TUBE TOP PRN (20:44)
[2023-09-29] MEDS ORDERED: FLU VACC QS2023(65UP)/MF59C/PF 60 MCG/0.5 ML SYRINGE IM ONE (14:38)
[2023-09-29] MEDS: FLU VACC QS2023-24(6MOS UP)/PF 60 MCG/0.5 ML SYRINGE IM ONE (15:53)
[2023-09-29 16:04] VITALS: BP 119/75; TEMP 97.9
[2023-09-29 16:51] LABS: Hematocrit 30.2 % (42.0-52.0); Hemoglobin 10.2 g/dL (14.0-18.0); Platelet Count 434 10x3/uL (130-400)
== END 2023-09-29 17:23 | disposition short-term general hospital (02) | DRG 329 ==
LOC: ERS 20:11 → SDC/OP 21:56 → IMCU/EMU 08-28 00:57 → SURG A 08-28 18:49
PROVIDERS: ADMIT Surgery; ATTEND Surgery
PROC: 0DBB0ZZ Excision of Ileum, Open Approach (ICD-10-PCS; 2023-08-27)
PROC: 0HQ0XZZ Repair Scalp Skin, External Approach (ICD-10-PCS; 2023-08-27)
PROC: 30233N1 Transfusion of Nonautologous Red Blood Cells into Peripheral Vein, Percutaneous Approach (ICD-10-PCS; 2023-08-27)
PROC: 0DTF0ZZ Resection of Right Large Intestine, Open Approach (ICD-10-PCS; 2023-09-02)
PROC: 0WQF0ZZ Repair Abdominal Wall, Open Approach (ICD-10-PCS; 2023-09-08)
PROC: 0DQ80ZZ Repair Small Intestine, Open Approach (ICD-10-PCS; 2023-09-12)
PROC: 02HV33Z Insertion of Infusion Device into Superior Vena Cava, Percutaneous Approach (ICD-10-PCS; principal; 2023-09-13)
PROC: B5181ZA Fluoroscopy of Superior Vena Cava using Low Osmolar Contrast, Guidance (ICD-10-PCS; 2023-09-13)
PROC: B548ZZA Ultrasonography of Superior Vena Cava, Guidance (ICD-10-PCS; 2023-09-13)
PROC: 0WQF0ZZ Repair Abdominal Wall, Open Approach (ICD-10-PCS; 2023-09-18)
PROC: 30233J1 Transfusion of Nonautologous Serum Albumin into Peripheral Vein, Percutaneous Approach (ICD-10-PCS; 2023-09-18)
DX: S36.409A Unspecified injury of unspecified part of small intestine, initial encounter (principal); K65.9 Peritonitis, unspecified; T81.33XA Disruption of traumatic injury wound repair, initial encounter; D62 Acute posthemorrhagic anemia; K56.609 Unspecified intestinal obstruction, unspecified as to partial versus complete obstruction; K91.89 Other postprocedural complications and disorders of digestive system; K63.2 Fistula of intestine; T81.32XA Disruption of internal operation (surgical) wound, not elsewhere classified, initial encounter; S36.899A Unspecified injury of other intra-abdominal organs, initial encounter; K56.7 Ileus, unspecified; T81.83XA Persistent postprocedural fistula, initial encounter; S01.01XA Laceration without foreign body of scalp, initial encounter; K66.0 Peritoneal adhesions (postprocedural) (postinfection); S92.311A Displaced fracture of first metatarsal bone, right foot, initial encounter for closed fracture; S93.104A Unspecified dislocation of right toe(s), initial encounter; K45.8 Other specified abdominal hernia without obstruction or gangrene; V49.9XXA Car occupant (driver) (passenger) injured in unspecified traffic accident, initial encounter
CPT/HCPCS: 36415; 36416; 36430; 36569; 70450; 71260; 72125; 74177; 80048; 80053; 83735; 84100; 85014; 85018; 85025; 85049; 85610; 85730; 86850; 86900; 86901; 87070; 87076; 87077; 87186; 87205; 88307; 90471; 90686; 90715; 93005; 93970; 97139; A4314; A4649; C1751; C9113; G0008; G0390; J0612; J1100; J1170; J1200; J1650; J1885; J1940; J2250; J2270; J2272; J2405; J2543; J2704; J3010; J3475; J3480; J3490; J7050; J7120; P9016; P9047; Q9963; Q9967; S0028